=== PATIENT | male | born 1995 | race Two or more races ===

== ENCOUNTER 2023-03-04 04:01 | Emergency (ER) | payer SELFPAY ==
[~2023-03-04] VITALS: Ht 172.7 cm; Wt 100.0 kg
[2023-03-04 04:06] VITALS: BP 134/85; PULSE 69; RESP 15; TEMP 98.2
[2023-03-04 04:19] LABS: COVID AG,FIA SOURCE NASAL SWAB
[2023-03-04 05:04] LABS: INFLUENZA TYPE A NEGATIVE FOR TYPE A (NEGATIVE); INFLUENZA TYPE B NEGATIVE FOR TYPE B (NEGATIVE); SARS-COV2 (COVID) ANTIGEN,FIA Negative (Negative)
[2023-03-04] MEDS ORDERED: IBUP-1492 PO (05:36)
[2023-03-04] MEDS ORDERED: BENZ-227 PO (05:36)
[2023-03-04] MEDS ORDERED: AZIT250T9 PO (05:36)
== END 2023-03-04 06:09 | disposition home or self-care (01) ==
LOC: EMS 04:07
DX: J40 Bronchitis, not specified as acute or chronic (principal); Z20.822 Contact with and (suspected) exposure to COVID-19
CPT/HCPCS: 87804; 99283